=== PATIENT | male | born 1975 | race Hispanic/Latino ===

== ENCOUNTER 2024-06-18 17:16 | Emergency (ER) | payer OTHER ==
[2024-06-18] MEDS ORDERED: ONDANSETRON 4 MG/2 ML VIAL ONE (17:49)
[2024-06-18] MEDS ORDERED: NA CHLORIDE 0.9% 1,000 ML ONE ×2 (17:49→19:15)
[2024-06-18] MEDS ORDERED: MORPHINE 4 MG/ML SYR ONE (17:49)
[2024-06-18 18:33] LABS: Anion Gap 8.7 mEq/L (5.0-15.0); Potassium 3.7 mEq/L (3.5-5.1)
[2024-06-18 18:36] LABS: PT Prothrombin Time 11.5 SECONDS (10-13.0); PTT, Activated Partial Thromb 28.1 SECONDS (27.2-37.4); Protime INR 1.01
[2024-06-18 18:42] LABS: Absolute Basophils 0.1 K/uL (0-0.5); Absolute Lymphocytes (CBC) 1.2 K/uL (0.7-4.9); Absolute Monocytes 0.6 K/uL (0.1-1.3); Absolute Neutrophil 7.3 K/uL (1.8-8.0); Basophils % 0.6 % (0-1.3); Eosinophils % 0.4 % (0-4.4); Hematocrit 37.2 % (39.6-49.0); Hemoglobin 13.7 g/dL (13.6-17.9); Lymphocytes % 13.1 % (15.3-44.8); MCH 31.3 pg (27.0-35.0); MCHC 36.8 g/dL (32.0-36.0); MCV 85.2 fL (80-100); MPV 7.7 fL (7.6-11.3); Monocytes % 6.6 % (3.3-12.3); Neutrophils % 79.3 % (41.7-73.7); Nucleated Red Blood Cells % 0.1 % (0-0); Platelets 239 thou/uL (152-406); RBC Red Blood Cell Count 4.37 M/uL (4.33-5.43); Red Cell Distribution Width 12.5 % (12.1-15.2)
[2024-06-18 18:55] LABS: Sqamous Epithelial None Seen /HPF (None Seen); Urine Bacteria <20 /HPF (<20); Urine Culture Reflex Order REFLEXED; Urine RBC >50 /HPF (None Seen); Urine WBC >50 /HPF (<5)
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
[2024-06-18 19:13] LABS: Specific Gravity 1.021 (1.005-1.030); Urine Bilirubin NEGATIVE (Negative); Urine Blood 3+ (OVER) (Negative); Urine Clarity Extremely Turbid (Clear); Urine Color Dark-Brown (Yellow); Urine Glucose NEGATIVE (Negative); Urine Ketones NEGATIVE (Negative); Urine Microscopic Reflex YN NO UMIC; Urine Nitrite NEGATIVE (Negative); Urine Protein 2+ (Negative); Urine Urobilinogen Normal (Normal); Urine pH 5.5 (5.0-7.0)
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
[2024-06-18 22:12] VITALS: TEMP 98.3
[2024-06-18 22:18] VITALS: BP 148/81; O2SAT 97
== END 2024-06-18 21:54 | disposition home or self-care (01) ==
LOC: ER 17:16
DX: R31.0 Gross hematuria (principal); S30.811A Abrasion of abdominal wall, initial encounter; S36.92XA Contusion of unspecified intra-abdominal organ, initial encounter; N19 Unspecified kidney failure; Q61.3 Polycystic kidney, unspecified; Q44.6 Cystic disease of liver; I10 Essential (primary) hypertension
CPT/HCPCS: 96361; 87088; 85025; 87086; 80048; 36415; 86900; 86850; 85610; 86901; 85730; 81003; 70450; 72125; 71260; 74177; 71045; 96375; 96374; 99284; Q9967; J2405; J7030 ×2